=== PATIENT | female | born 1995 | race Caucasian/White ===

== ENCOUNTER 2017-02-13 17:06 | Emergency (ER) | payer OTHER ==
[2017-02-13 17:10] VITALS: BP 140/96
== END 2017-02-13 18:29 | disposition home or self-care (01) ==
LOC: ED 17:06
DX: S92.345A Nondisplaced fracture of fourth metatarsal bone, left foot, initial encounter for closed fracture (principal); W22.8XXA Striking against or struck by other objects, initial encounter; Y93.89 Activity, other specified; Y92.810 Car as the place of occurrence of the external cause; Y99.8 Other external cause status

== ENCOUNTER 2018-01-14 10:01 | Emergency (ER) | payer OTHER ==
[~2018-01-14] VITALS: Ht 157.5 cm; Wt 57.8 kg
[2018-01-14 10:06] VITALS: Ht 157.5 cm; Wt 57.8 kg
[2018-01-14 11:25] VITALS: BP 132/90
== END 2018-01-14 11:26 | disposition home or self-care (01) ==
LOC: ED 10:01
DX: M79.5 Residual foreign body in soft tissue (principal); Z88.0 Allergy status to penicillin

== ENCOUNTER 2018-04-13 02:38 | Emergency (ER) | payer OTHER ==
[~2018-04-13] VITALS: Ht 160 cm; Wt 60.4 kg
[2018-04-13 02:59] VITALS: BP 143/98; Ht 160 cm; Wt 60.4 kg
== END 2018-04-13 03:44 | disposition home or self-care (01) ==
LOC: ED 02:38
DX: L30.9 Dermatitis, unspecified (principal); J45.909 Unspecified asthma, uncomplicated; Z88.0 Allergy status to penicillin

== ENCOUNTER 2018-06-10 17:11 | Emergency (ER) | payer OTHER ==
[~2018-06-10] VITALS: Ht 160 cm; Wt 56.7 kg
[2018-06-10 17:21] VITALS: Ht 160 cm; Wt 56.7 kg
[2018-06-10 19:07] VITALS: BP 116/78
== END 2018-06-10 19:07 | disposition home or self-care (01) ==
LOC: ED 17:11
DX: L25.9 Unspecified contact dermatitis, unspecified cause (principal); M25.571 Pain in right ankle and joints of right foot; Z88.0 Allergy status to penicillin; J45.909 Unspecified asthma, uncomplicated; X50.1XXA Overexertion from prolonged static or awkward postures, initial encounter; Y93.89 Activity, other specified; Y92.89 Other specified places as the place of occurrence of the external cause; Y99.8 Other external cause status
CPT/HCPCS: J1885

== ENCOUNTER 2018-08-10 10:57 | Emergency (ER) | payer OTHER ==
[~2018-08-10] VITALS: Ht 160 cm; Wt 56.7 kg
[2018-08-10 11:03] VITALS: Ht 160 cm; Wt 56.7 kg
[2018-08-10 11:53] LABS: CALCIUM 8.7 mg/dL (8.5-10.1); CARBON DIOXIDE 28.5 mmol/L (21-32); CHLORIDE SERUM 96 mmol/L (98-107); CREATININE SERUM 0.7 mg/dL (0.6-1.0); GFR1 > 60 mL/min; GLUCOSE SERUM 128 mg/dL (74-106); POTASSIUM SERUM 3.3 mmol/L (3.5-5.1); SODIUM SERUM 133 mmol/L (136-145)
[2018-08-10 11:56] LABS: BASOPHIL % 0.2 % (0-2); PLATELET COUNT 228 x10^3mcL (130-400); RED CELL DISTRIBUTION WIDTH 13.2 % (11.5-14.5)
[2018-08-10 11:58] LABS: ALBUMIN 4.1 g/dL (3.4-5.0); ALKALINE PHOSPHATASE 86 U/L (46-116); ALT/SGPT 60 U/L (14-59); AST/SGOT 29 U/L (15-37); BILIRUBIN TOTAL 0.3 mg/dL (0.20-1.00); LIPASE 124 IU/L (73-393)
[2018-08-10 11:59] LABS: TOTAL PROTEIN, SERUM 9.2 g/dL (6.4-8.2)
[2018-08-10 14:57] VITALS: BP 158/76
== END 2018-08-10 14:57 | disposition home or self-care (01) ==
LOC: ED 10:57
PROVIDERS: Emergency Medicine
DX: K52.9 Noninfective gastroenteritis and colitis, unspecified (principal); E86.0 Dehydration; Z88.0 Allergy status to penicillin; J45.909 Unspecified asthma, uncomplicated
CPT/HCPCS: 87046; 87046-59; J2405; J7030

== ENCOUNTER 2018-08-14 10:02 | Emergency (ER) | payer OTHER ==
[~2018-08-14] VITALS: Ht 160 cm; Wt 57.6 kg
[2018-08-14 10:04] VITALS: Ht 160 cm; Wt 57.6 kg
[2018-08-14 11:47] LABS: BASOPHIL % 0.7 % (0-2); PLATELET COUNT 314 x10^3mcL (130-400); RED CELL DISTRIBUTION WIDTH 13.1 % (11.5-14.5)
[2018-08-14 11:54] LABS: CARBON DIOXIDE 25.7 mmol/L (21-32); CHLORIDE SERUM 98 mmol/L (98-107); CREATININE SERUM 0.5 mg/dL (0.6-1.0); GFR1 > 60 mL/min; GLUCOSE SERUM 108 mg/dL (74-106); POTASSIUM SERUM 3.9 mmol/L (3.5-5.1); SODIUM SERUM 134 mmol/L (136-145)
[2018-08-14 11:59] LABS: ALBUMIN 4.2 g/dL (3.4-5.0); ALKALINE PHOSPHATASE 88 U/L (46-116); ALT/SGPT 104 U/L (14-59); AST/SGOT 57 U/L (15-37); BILIRUBIN TOTAL 0.11 mg/dL (0.20-1.00); TOTAL PROTEIN, SERUM 9.2 g/dL (6.4-8.2)
[2018-08-14 12:39] VITALS: BP 129/69
== END 2018-08-14 12:39 | disposition home or self-care (01) ==
LOC: ED 10:02
PROVIDERS: Emergency Medicine
DX: R11.2 Nausea with vomiting, unspecified (principal); R10.84 Generalized abdominal pain; J45.909 Unspecified asthma, uncomplicated; Z88.0 Allergy status to penicillin
CPT/HCPCS: J1885; J7030

== ENCOUNTER 2018-10-02 01:23 | Emergency (ER) | payer OTHER ==
[~2018-10-02] VITALS: Ht 157.5 cm; Wt 55.8 kg
[2018-10-02 01:27] VITALS: Ht 157.5 cm; Wt 55.8 kg
[2018-10-02 02:24] LABS: BASOPHIL % 0.7 % (0-2); PLATELET COUNT 312 x10^3mcL (130-400); RED CELL DISTRIBUTION WIDTH 13.2 % (11.5-14.5)
[2018-10-02 02:27] LABS: UA SPECIFIC GRAVITY 1.015 (1.005-1.035); microscopic required? YES; urine erythrocyte TRACE (NEGATIVE)
[2018-10-02 03:29] VITALS: BP 147/87
== END 2018-10-02 03:29 | disposition home or self-care (01) ==
LOC: ED 01:23
PROVIDERS: Specialist
DX: O20.8 Other hemorrhage in early pregnancy (principal); O99.511 Diseases of the respiratory system complicating pregnancy, first trimester; Z3A.01 Less than 8 weeks gestation of pregnancy; Z88.0 Allergy status to penicillin
CPT/HCPCS: 36415; J1885

== ENCOUNTER 2018-11-06 11:34 | Emergency (ER) | payer OTHER ==
[~2018-11-06] VITALS: Ht 167.6 cm; Wt 59.9 kg
[2018-11-06 11:39] VITALS: Ht 167.6 cm; Wt 59.9 kg
[2018-11-06 12:53] VITALS: BP 134/87
== END 2018-11-06 12:53 | disposition home or self-care (01) ==
LOC: ED 11:34
DX: S93.502A Unspecified sprain of left great toe, initial encounter (principal); J45.909 Unspecified asthma, uncomplicated; Z76.0 Encounter for issue of repeat prescription; Z88.0 Allergy status to penicillin; W18.40XA Slipping, tripping and stumbling without falling, unspecified, initial encounter; Y93.89 Activity, other specified; Y92.89 Other specified places as the place of occurrence of the external cause; Y99.8 Other external cause status

== ENCOUNTER 2019-01-23 23:34 | Emergency (ER) | payer OTHER ==
[~2019-01-23] VITALS: Ht 160 cm; Wt 63.7 kg
[2019-01-23 23:37] VITALS: Ht 160 cm; Wt 63.7 kg
[2019-01-24 00:46] LABS: BASOPHIL % 0.6 % (0-2); PLATELET COUNT 219 x10^3mcL (130-400); RED CELL DISTRIBUTION WIDTH 13.7 % (11.5-14.5)
[2019-01-24 01:13] LABS: UA SPECIFIC GRAVITY <=1.005 (1.005-1.035); microscopic required? YES; urine erythrocyte 3+ (NEGATIVE)
[2019-01-24 02:09] VITALS: BP 110/51
== END 2019-01-24 02:09 | disposition home or self-care (01) ==
LOC: ED 23:34
PROVIDERS: Emergency Medicine
DX: N93.8 Other specified abnormal uterine and vaginal bleeding (principal); J45.909 Unspecified asthma, uncomplicated; Z88.0 Allergy status to penicillin
CPT/HCPCS: 36415

== ENCOUNTER 2019-02-08 21:12 | Emergency (ER) | payer OTHER | END 2019-02-08 22:30 | disposition other institution (70) | LOC: ED 21:12 | DX: Z02.89 Encounter for other administrative examinations (principal) ==

== ENCOUNTER 2019-02-08 21:12 | Emergency (ER) | payer OTHER ==
[~2019-02-08] VITALS: Ht 160 cm; Wt 77.1 kg
[2019-02-08 21:15] VITALS: BP 145/104; Ht 160 cm; Wt 77.1 kg
== END 2019-02-08 22:30 | disposition other institution (70) ==
LOC: ED 21:12
DX: S50.11XA Contusion of right forearm, initial encounter (principal); J45.909 Unspecified asthma, uncomplicated; Z88.0 Allergy status to penicillin; Y04.8XXA Assault by other bodily force, initial encounter; Y93.89 Activity, other specified; Y92.89 Other specified places as the place of occurrence of the external cause; Y99.8 Other external cause status
CPT/HCPCS: Q0092

== ENCOUNTER 2020-03-20 21:19 | Emergency (ER) | payer MEDICAID ==
[~2020-03-20] VITALS: Ht 160 cm; Wt 79.8 kg
[2020-03-20 21:25] VITALS: Ht 160 cm; Wt 79.8 kg
[2020-03-20 22:11] LABS: BASOPHIL % 0.7 % (0-2); PLATELET COUNT 207 x10^3mcL (130-400); RED CELL DISTRIBUTION WIDTH 14.5 % (11.5-14.5)
[2020-03-20 22:29] LABS: UA SPECIFIC GRAVITY <=1.005 (1.005-1.035); microscopic required? YES; urine erythrocyte 1+ (NEGATIVE)
[2020-03-20 23:06] VITALS: BP 134/76
== END 2020-03-20 23:06 | disposition home or self-care (01) ==
LOC: ED 21:19
PROVIDERS: Emergency Medicine
DX: O20.9 Hemorrhage in early pregnancy, unspecified (principal)
CPT/HCPCS: 36415; Q0092